=== PATIENT | male | born 2005 | race Asian ===

== ENCOUNTER 2023-01-28 09:01 | Emergency (ER) | payer OTHER ==
--- NOTE | 2023-01-28 09:18 | ED Physician Documentation ---
PD HPI LOWER EXT INJURY - Stated complaint Stated Complaint: LT ANKLE INJ - Chief complaint Chief Complaint: Ext Problem - History obtained from History obtained from: Patient - History of Present Illness PD HPI LOW EXT INJURY LOCATION: Left, Ankle Type of injury: Twist (inversion while running last evening.) Timing - onset: Yesterday Timing - details: Abrupt onset, Still present Worsened by: Moving, Palpating, Other (unable to walk currently, and is using crutches from home.) Associated symptoms: Swelling. No: Weakness, Numbness Similar symptoms before: Has not had sx before Recently seen: Not recently seen Review of Systems Skin: denies: Abrasion (s), Laceration (s) Neurologic: denies: Focal weakness, Numbness PD PAST MEDICAL HISTORY - Past Medical History Past Medical History: No - Present Medications Home Medications: Ambulatory Orders Medication Instructions Recorded Confirmed No Known Home Medications 01/28/23 01/28/23 - Allergies Allergies/Adverse Reactions: Allergies Allergy/AdvReac Type Severity Reaction Status Date / Time No Known Drug Allergies Allergy Verified 01/28/23 09:11 PD ED PE NORMAL - Vitals Vital signs reviewed: Yes - General General: Alert and oriented X 3, No acute distress, Well developed/nourished - Derm Derm: Normal color, Warm and dry - Extremities Extremities: Other (swelling and tedner lateral malleolus and inferolateral to it. No gross laxity on exam. ) - Neuro Neuro: No motor deficit, No sensory deficit Results - Vitals Vitals: Vital Signs - 24 hr 01/28/23 09:09 Temperature 36.6 C Heart Rate 64 Respiratory 16 Rate Blood Pressure 152/72 H O2 Saturation 98 Oxygen O2 Source Room air - Rads (name of study) left ankle Relevant Findings:: Prelim report reviewed, EMP independent interpretation of test (no fractures) PD Medical Decision Making - ED course Complexity details: reviewed results (no fractures on imaging. ), considered differential (sprain versus fracture. ), d/w patient Departure - Departure Disposition: 01 Home, Self Care Clinical Impression: Left ankle sprain Qualifiers: Encounter type: initial encounter Involved ligament of ankle: unspecified ligament Qualified Code(s): S93.402A - Sprain of unspecified ligament of left ankle, initial encounter Condition: Stable Record reviewed to determine appropriate education?: Yes Instructions: ED Sprain Ankle W X Ray Comments: Your x-ray appears normal without any signs of fractures. Obviously you have injury to the ankle of the ligaments and muscles. Use the ankle brace when up and around until well-healed. This commonly can be 2 to 4 weeks to add extra support to prevent reinjury. In the short-term use your crutches for nonweightbearing as needed. Progress activity as tolerated. Ice elevate and rest your ankle often today for swelling. Use ibuprofen 2 or 3 times daily for the next several days to a week. Add Tylenol if needed for pains. Follow-up with your primary care. You can get advice from physical therapy as well on treatments of these. Forms: PCP List, Activity restrictions Discharge Date/Time: 01/28/23 10:45
[2023-01-28 09:22] VITALS: BP 152/72
--- NOTE | 2023-01-28 09:51 | XRAY Report ---
PROCEDURE: Ankle 3 View LT INDICATIONS: twisting injury last evening TECHNIQUE: 3 views of the ankle were acquired. COMPARISON: None. FINDINGS: Bones: No fractures or dislocations. Ankle mortise is normally aligned. No suspicious bony lesions . Soft tissues: Mild lateral ankle soft tissue swelling is seen. No tibiotalar joint effusion. Achill es tendon appears normal. IMPRESSION: No acute bony abnormality. If there remains a high clinical concern for fracture, consider cross-sect ional imaging now. If pain persists, consider repeat x-ray in 10-14 days or cross-sectional imaging. Reviewed by: Maxi Gonzalez MD on 01/28/2023 9:50 AM PDT Approved by: Maxi Gonzalez MD on 01/28/2023 9:50 AM PDT Station ID: [id number]
== END 2023-01-28 10:45 | disposition home or self-care (01) ==
LOC: ED 09:01
DX: S93.402A Sprain of unspecified ligament of left ankle, initial encounter (principal); X50.1XXA Overexertion from prolonged static or awkward postures, initial encounter; Y93.02 Activity, running
CPT/HCPCS: 99283